=== PATIENT | male | born 1965 | race Caucasian/White ===

== ENCOUNTER 2016-12-25 05:42 | Emergency (ER) | payer OTHER ==
[~2016-12-25] VITALS: Ht 172.7 cm; Wt 70.0 kg
[2016-12-25 05:50] VITALS: BP 167/89; PULSE 104; RESP 18; O2SAT 95
[2016-12-25] MEDS ORDERED: UNK HTN MED (05:50)
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
[2016-12-25] MEDS ORDERED: ACETAMINOPHEN 500 MG CPLT PO ONE (06:15)
[2016-12-25] MEDS ORDERED: DIPHTH/TETANUS/ACEL PERTUSSIS (BOOSTER) 0.5 ML VIAL/PFS IM ONE (06:15)
[2016-12-25] MEDS ORDERED: LIDOCAINE 1%/EPINEPHrine 1:100,000 SOLN 20 ML VIAL INFIL ONE (06:15)
[2016-12-25 06:39] VITALS: BP 145/82; PULSE 88; RESP 18; TEMP 98.4; O2SAT 97
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
[2016-12-25] MEDS ORDERED: ROBA500T PO (08:01)
[2016-12-25] MEDS ORDERED: PERC5TAB12 PO (08:01)
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
[2016-12-25 08:05] VITALS: BP 143/88
== END 2016-12-25 08:50 | disposition home or self-care (01) ==
LOC: NEPC 05:42
DX: S09.90XA Unspecified injury of head, initial encounter (principal); S01.111A Laceration without foreign body of right eyelid and periocular area, initial encounter; V49.59XA Passenger injured in collision with other motor vehicles in traffic accident, initial encounter; Y92.410 Unspecified street and highway as the place of occurrence of the external cause; Y99.0 Civilian activity done for income or pay; E78.00 Pure hypercholesterolemia, unspecified; I10 Essential (primary) hypertension; Z23 Encounter for immunization
CPT/HCPCS: 12013; 70450; 90471; 90715

== ENCOUNTER 2017-10-12 01:56 | Observation (INO) | payer OTHER ==
[~2017-10-12 01:56] MED LIST: PERC5TAB12 PO; ROBA500T PO; UNK HTN MED
[2017-10-12 02:16] VITALS: BP 110/71; PULSE 72; RESP 18; TEMP 98; O2SAT 95
[2017-10-12 03:32] VITALS: BP 110/61; PULSE 58; RESP 18; TEMP 98; O2SAT 97
[2017-10-12 04:10] VITALS: PULSE 72
[2017-10-12] MEDS ORDERED: ONDANSETRON HCL 4 MG/2 ML VIAL IV PUSH PRN (05:30)
[2017-10-12] MEDS ORDERED: ACETAMINOPHEN 500 MG CPLT PO PRN (05:30)
[2017-10-12 07:33] VITALS: BP 113/73; PULSE 79; RESP 18; TEMP 98.2; O2SAT 96
[2017-10-12 08:00] VITALS: PULSE 62
--- NOTE | 2017-10-12 09:32 | HHI.HP ---
HPI Primary Care Physician Unknown Chief Complaint Chest pain History of Present Illness This is a 52-year-old male that presents to ED in [place] to evaluate a chest discomfort and with subsequent transfer to the chest pain center to be further evaluated. He states that yesterday while sitting at home around noon he developed a chest tightness in the center of his chest as well as a pressure throughout his head. The discomfort is chest was about a 6 out of 10. He states that he checks his blood pressure in the bottom number was 112. This concerned him. States the discomfort in his chest last about 15 minutes but it recurred maybe 3 more times. He did feel little nauseous. No shortness of breath or diaphoresis. Headache seemed to lasted a few hours. Currently no headache. No photophobia or phonophobia. Denies numbness tingling weakness in extremities. Denies seizure activity. Patient had a steroid injection by his picture painter 5 days ago and thinks that that may have caused an elevated blood pressure. He was hypertensive when he first arrived in the ED but has been normotensive since. Denies history of heart disease. Cannot recall ever having a stress test or heart catheterization. Review of Systems General: Patient denies fevers, chills recent, and recent travel HEENT: Had a headache. States the whole head hurt. Patient denies sore throat , difficulty swallowing. Cardiovascular: Has the chest discomfort as mentioned above. Denies sensation of heart beating rapidly or irregularly. No syncope. Respiratory: Denies shortness of breath or inspirational chest discomfort. Denies coughing wheezing or hemoptysis. GI: Patient denies nausea, vomiting, diarrhea, abdominal pain, bloody stools. Musculoskeletal: Chronic low back pain. Patient denies joint pain or edema. Denies calf pain or edema. Neurovascular: He had a headache yesterday. Patient denies numbness, tingling, weakness in extremities. Denies seizure activity. Denies phonophobia or photophobia. Denies neck stiffness. Endocrine: Denies polyuria and polydipsia. Hematologic: Denies easy bruising. Skin: Denies rash or itching. Past Family Social History Allergies: Coded Allergies: No Known Allergies (Unverified Allergy, Unknown, 10/12/17) Past Medical History Chronic back pain. Denies hypertension, hyperlipidemia, diabetes, and known CAD. Past Surgical History Left inguinal hernia repair 2. Reported Medications Reported Meds & Active Scripts Active Robaxin (Methocarbamol) 500 Mg Tab 500 Mg PO TID Percocet (Oxycodone-Acetaminophen) 5-325 mg Tab 1 Tab PO Q6H PRN Reported [Unk Htn Med] Active Ordered Medications Current Medications Medications (Trade) Dose Ordered Sig/Juan Jose Route Start Time Stop Time Status Last Admin (Tylenol) 500 mg Q4H PRN PO 10/12/17 05:30 (Zofran Inj) 4 mg Q6H PRN IV PUSH 10/12/17 05:30 Family History Denies family history of CAD but states his father had a CVA in his 60s. Social History Patient quit smoking 20 years ago but states he smoked approximately one half packs a day for 7 years. Denies alcohol or illicit drugs. Physical Exam Vital Signs Vital Signs Date Time Temp Pulse Resp B/P (MAP) Pulse Ox O2 Delivery O2 Flow Rate FiO2 10/12/17 07:33 98.2 79 18 113/73 (86) 96 10/12/17 04:10 72 10/12/17 03:32 98.0 58 18 110/61 (77) 97 10/12/17 02:16 98.0 72 18 110/71 (84) 95 Physical Exam GENERAL: This is a well-nourished, well-developed patient, in no apparent distress. Patient speaks in clear complete sentences. Patient is pleasant. HEENT: Head is atraumatic and normocephalic. Neck is supple without lymphadenopathy and trachea is midline. No JVD or carotid bruits. CARDIOVASCULAR: Regular rate and rhythm without murmurs, gallops, or rubs. RESPIRATORY: Clear to auscultation. Breath sounds equal bilaterally. No wheezes , rales, or rhonchi. Chest wall is nontender. No use of accessory muscles. GASTROINTESTINAL: Abdomen is nontender, nondistended. Abdomen soft. No obvious pulsatile mass or bruit. No CVA tenderness. Strong femoral pulses bilaterally. Normal bowel sounds in all quadrants. MUSCULOSKELETAL: There is discomfort with range of motion of his lower back which she states chronic. Patient is moving upper and lower extremities freely. No calf tenderness or edema, no Homans sign. Strong pulses in upper and lower extremities. NEUROLOGICAL: Patient is alert and oriented. Cranial nerves 2-12 are grossly intact. No focal deficits and speech is clear. SKIN: No rash and turgor is normal. Laboratory Laboratory Tests Test 10/12/17 02:31 Troponin I LESS THAN 0.02 Imaging Chest x-ray read by radiologist as no acute abnormalities. Course EKGs been sinus rhythm to sinus tachycardia with rate of [address] segment depressions or elevations. Caprini VTE Risk Assessment Caprini VTE Risk Assessment: No/Low Risk (score <= 1) Caprini Risk Assessment Model Point Value = 1 Point Value = 2 Point Value = 3 Point Value = 5 Age 41-60 Minor surgery BMI > 25 kg/m2 Swollen legs Varicose veins or History of unexplained or recurrent spontaneous Oral contraceptives or hormone replacement Sepsis (< 1 month) Serious lung disease, including pneumonia (< 1 month) Abnormal pulmonary function Acute myocardial infarction Congestive heart failure (< 1 month) History of inflammatory bowel disease Medical patient at bed rest Age 61-74 Arthroscopic surgery Major open surgery (> 45 min) Laparoscopic surgery (> 45 min) Malignancy Confined to bed (> 72 hours) Immobilizing plaster cast Central venous access Age >= 75 History of VTE Family history of VTE Factor V Leiden Prothrombin [id number] Lupus anticoagulant Anticardiolipin antibodies Elevated serum homocysteine Heparin-induced thrombocytopenia Other congenital or acquired thrombophilia Stroke (< 1 month) Elective arthroplasty Hip, pelvis, or leg fracture Acute spinal cord injury (< 1 month) Prophylaxis Regimen Total Risk Factor Score Risk Level Prophylaxis Regimen 0-1 Low Early ambulation 2 Moderate Order ONE of the following: *Sequential Compression Device (SCD) *Heparin 5000 units SQ BID 3-4 Higher Order ONE of the following medications: *Heparin 5000 units SQ TID *Enoxaparin/Lovenox 40 mg SQ daily (WT < 150 kg, CrCl > 30 mL/min) *Enoxaparin/Lovenox 30 mg SQ daily (WT < 150 kg, CrCl > 10-29 mL/min) *Enoxaparin/Lovenox 30 mg SQ BID (WT < 150 kg, CrCl > 30 mL/min) AND/OR *Sequential Compression Device (SCD) 5 or more Highest Order ONE of the following medications: *Heparin 5000 units SQ TID (Preferred with Epidurals) *Enoxaparin/Lovenox 40 mg SQ daily (WT < 150 kg, CrCl > 30 mL/min) *Enoxaparin/Lovenox 30 mg SQ daily (WT < 150 kg, CrCl > 10-29 mL/min) *Enoxaparin/Lovenox 30 mg SQ BID (WT < 150 kg, CrCl > 30 mL/min) AND *Sequential Compression Device (SCD) Assessment and Plan Assessment and Plan * Chest pain: Patient has had serial cardiac enzymes and EKGs for ruling out purposes and will be seen by Dr. Griggs of cardiology and the chest and center. With issues are chronic back pain, patient will now have a Lexiscan myocardial perfusion stress test and if that is nonischemic will likely be discharged home with instructions to follow-up with his physicians. Return to ED for interval issues. * Chronic back pain: Will have analgesia as needed. Patient is stable this time. He is agreeable to this plan. William Vanegas Oct 12, 2017 09:32
[2017-10-12] MEDS ORDERED: REGADENOSON INJ 0.4 MG/5 ML SYR ONE (11:30)
--- NOTE | 2017-10-12 12:38 | RADRPT ---
EXAM DATE/TIME: 10/12/2017 11:00 [facility] COMPARISON: No previous studies available for comparison. INDICATIONS : Midchest pain. Angina. DOSE: 25.8 mCi Tc99m Myoview at stress. 8.1 mCi Tc99m Myoview at rest. 0.4 mg Lexiscan STRESS SYMPTOMS: Chest tightness. EJECTION FRACTION: > 70% MEDICAL HISTORY : Hypertension. SURGICAL HISTORY : Inguinal hernia repair. ENCOUNTER: Initial ACUITY: 1 day PAIN SCALE: 6/10 LOCATION: Midsternal chest TECHNIQUE: The patient underwent pharmacologic stress with infusion of prescribed dose. Continuous ECG tracing was monitored during stress. Gated SPECT imaging was performed after stress and conventional SPECT i maging was performed at rest. The examination was performed on a SPECT/CT scanner, both attenuation and non-corrected datasets were reviewed. FINDINGS: DISTRIBUTION: The maximum perfused segment at stress is in the septal wall. PERFUSION STUDY: The pattern of perfusion at stress shows some mild apical thinning without ischemia. GATED STUDY: There is intact wall motion and thickening without hypokinetic or dyskinetic segments. CONCLUSION: 1. Negative exam. No scintigraphic findings of infarct or ischemia. 2. Excellent wall motion throughout with estimated ejection fraction of greater than 70% RISK CATEGORY: Low (<1% Annual Mortality Rate) Marc Canada MD on October 12, 2017 at 12:33 Board Certified Radiologist. This report was verified electronically.
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
--- NOTE | 2017-10-12 13:43 | TR ---
Date Performed: 10/12/2017 Time Performed: 11:32:16 DOCTOR: Orville Griggs DRUG LIST: CLINICAL HISTORY: REASON FOR TEST: REASON FOR ENDING: OBSERVATION: CONCLUSION: Lexiscan stress test was performed under standard four minute protocol. Radionuclid e was injected one minute prior to ending the test. No electrocardiographic abormalities were present to suggest ischemia. Nuclear imaging and interpretation are pending. COMMENTS:
== END 2017-10-12 13:51 | disposition home or self-care (01) ==
LOC: NEDDLT 01:56 → NEPFCDU 01:59
DX: R07.89 Other chest pain (principal); M54.9 Dorsalgia, unspecified; G89.29 Other chronic pain; R51 Headache; R00.0 Tachycardia, unspecified; I10 Essential (primary) hypertension; I20.9 Angina pectoris, unspecified; Z87.891 Personal history of nicotine dependence
CPT/HCPCS: 78452; 84484; 93005; 93017; A9502; G0378; J2785; 99281